=== PATIENT | female | born 1950 | race Caucasian/White ===

== ENCOUNTER 2016-11-07 04:30 | Inpatient (IN) | payer OTHER ==
[~2016-11-07] VITALS: Ht 152.4 cm; Wt 93.6 kg
[2016-11-07] VITALS (7 sets, daily range): BP systolic 84–168; BP diastolic 51–108
[2016-11-07] MEDS ORDERED: ASPIRIN ENTERIC81 M1 PO (06:09)
[2016-11-07] MEDS ORDERED: ACETAMINOPHEN500 MG PO (06:11)
[2016-11-07] MEDS ORDERED: BENAZEPRIL HCL20 MG PO (06:11)
[2016-11-07] MEDS ORDERED: CITALOPRAM HYDR40 MG PO (06:12)
[2016-11-07] MEDS ORDERED: NEURONTIN600 MG PO (06:13)
[2016-11-07] MEDS ORDERED: HUMULIN 70/30 SC (06:14)
[2016-11-07] MEDS ORDERED: HUMALOG100 MG/ML (06:16)
[2016-11-07] MEDS ORDERED: SIMVASTATIN80 MG PO (06:17)
--- NOTE | 2016-11-07 07:44 | HISTORY AND PHYSICAL ---
ADMITTED: 11/07/2016 ADMITTING DIAGNOSIS: 1. Pneumonia CHIEF COMPLAINT: 1. Cough HISTORY OF PRESENT ILLNESS: The patient is a white diabetic female who came in complaining of sickness for a couple of weeks. It began after she was not so long ago discharged with ketoacidosis. She developed a cough with severe headache, body aches, and green phlegm production with a fever up to 103. It worsened over the following 2 weeks and she developed decreased appetite, near constant cough, with occasional slight vomiting. She also developed in the last week, shortness of breath, wheezing, and went to the emergency department in [place] for evaluation. She denied any hemoptysis. MEDICAL/SURGICAL HISTORY: Type 2 diabetes mellitus managed with insulin, fibromyalgia syndrome, chronic headache and pain, peripheral neuropathy, hypertension, narcolepsy. Past surgical history: NOEMI/BSO. She has had back surgery. She is status post tonsillectomy, cholecystectomy, appendectomy. MEDICATIONS: 1. Gabapentin 1200 mg t.i.d. 2. Humulin 70/30 forty units b.i.d. 3. Humalog per sliding scale. 4. Celexa 40 mg daily. 5. Simvastatin 40 mg daily. 6. Aspirin 81 mg. 7. A green blood pressure pill. ALLERGIES: 1. SOCIAL HISTORY: FAMILY HISTORY: Father had heart disease. Her mother had diabetes, stroke, and breast cancer. She has siblings who are well. REVIEW OF SYSTEMS: Positive for chronic diarrhea. She has diabetes and her blood sugars have been running low. Recently hospitalized for ketoacidosis as mentioned. She has had some runny nose and slight sore throat. She has body aches, but aches have worsened all over and has generalized arthritis. She has burning and numbness in her feet from neuropathy. She also has chronic pain. PHYSICAL EXAMINATION: VITAL SIGNS: Stable. An increased pulse was noted at the emergency department, blood pressure was noted to be high as high as 196/91, pulse was up to 120. O2 saturations were 88% after walking and up to 96% with supplemental oxygen. Temperature as high as 102.9. GENERAL: The patient was awake, alert, in no acute distress, breathing comfortably. HEENT: PERRLA. EOMI. External ears were clear. Pharynx was dry. NECK: Supple. There is no adenopathy or bruits. No thyromegaly or mass. LUNGS: With rhonchi and inspiratory wheeze on the right. HEART: Rate and rhythm was regular without murmur, click, rub or gallop. ABDOMEN: Obese. There was no abdominal mass or bruit. Good bowel sounds. BREASTS: Symmetric. BACK: Without CVAT. EXTREMITIES: Showed no clubbing, cyanosis, or edema. There is no apparent skin lesions notable. LAB/IMAGING: Laboratory evaluation in the emergency department showed a potassium at 3.4, sodium 141, CO2 23, glucose was 219, BUN 5, creatinine 0.7. Lactate was 1.55. Oxygen level was pH of the blood was 7.3, CO2 41. WBC 7.4, hemoglobin 13, hematocrit 38 , lymphs were 15%, monos 5, eos 0.5, polys 78, and absolute neutrophil count was 5.8. Platelet count 304. A CT scan was done to rule out PE and this demonstrated multifocal infiltrates at the right lower and smaller infiltrates in the left lower lungs. Bronchiolar cuffing was present. Lymph nodes were noted in the mediastinum. The largest was 1.6 cm. Heart was enlarged and there were coronary artery calcifications. Chest x-ray also suggested some basilar infiltrates. IMPRESSION: 1. Clinical influenza 2. Pneumonia 3. Poorly controlled diabetes PLAN: The patient was transferred from the emergency department there due to lack of availability of beds in the [facility]. She was admitted here for the diagnosis of pneumonia and will be started on a pneumonia protocol.
--- NOTE | 2016-11-07 08:00 | Progress Note ---
Subjective General Note Date: November 07, 2016 Admission Date: November 07, 2016 Hospital Day: 1 PCP: Samantha Bray M.D. Status: Inpatient Advanced Directive: FULL CODE Room: 205 Brief History: The patient is a 66-year-old white female with a significant past medical history of COPD, type 2 diabetes mellitus, fibromyalgia, chronic pain, peripheral neuropathy, hypertension, narcolepsy, who presented as a transfer from [facility] emergency department secondary to suspected pneumonia/influenza. Secondary to the above, the patient was admitted by Connor Mcfadden M.D. for further evaluation and treatment For other history present illness, past medical history, family history, social history, review of systems, and admission physical examination please see the patient's history and physical examination and ER visit note in the patient's medical record. Subjective: The patient states she is doing somewhat better today. Shortness of breath improved. Feels better after use of Tylenol Patient requests: None Medications and Allergies Medications Current Medications Sig/Asha Start time Last Medication Dose Route Stop Time Status Admin Azithromycin 500 MG DAILY 11/08 899 AC Sodium Chloride 250 ML IV 11/09 1000 Citalopram 40 MG DAILY 11/08 09 AC Hydrobromide PO Atorvastatin Calcium 80 MG QPM 11/07 1800 AC PO Gabapentin 600 MG TID 11/07 1400 AC PO Insulin Human Lispro See Dose AC 11/07 1130 AC Insts (1) SC Sodium Chloride/ 1,000 ML ASDIRECTED 11/07 0945 AC Electrolytes IV Aspirin 81 MG DAILY 11/07 0900 AC 11/07 PO 0831 Ceftriaxone Sodium/ 50 ML DAILY 11/07 0900 AC 11/07 Dextrose IV 0837 Insulin Lispro 40 UNITS BID 11/07 0900 AC 11/07 Protam/Lispro Human SC 0920 Lisinopril 40 MG DAILY 11/07 0900 AC 11/07 PO 0831 Albuterol Sulfate 2.5 MG RTQ3H PRN 11/07 0815 AC IN Acetaminophen 500 MG Q4H PRN 11/07 0700 AC PO Acetaminophen 650 MG Q6H PRN 11/07 0645 AC 11/07 PO 0831 Ondansetron HCl 4 MG Q6H PRN 11/07 0645 AC PO Zolpidem Tartrate 5 MG QHS PRN 11/07 0645 AC PO Dose Instructions: (1)Insulin Human Lispro: LOW DOSE SLIDING SCALE Allergies Coded Allergies: Rosiglitazone (From AVANDIA) (Intermediate, SWELLING 11/07/16) Exenatide (From BYETTA) (Mild, NAUSEA 11/07/16) Phenol (From BYETTA) (Mild, NAUSEA 11/07/16) Aspirin (Intermediate, NAUSEA AND VOMITING WITH LARGE DOSES 11/07/16) Ibuprofen (Intermediate, "HARD ON KIDNEYS" 11/07/16) Metformin (Intermediate, DIARRHEA 11/07/16) Codeine (Mild, HEADACHE 11/07/16) Physical Exam Vital Signs / I&Os Vital Signs Date Time Temp Pulse Resp B/P Pulse O2 O2 Flow FiO2 Ox Delivery Rate 11/07 0705 102.0 106 20 153/77 90 Room Air 11/07 0600 Nasal 4.0 Cannula 11/07 0517 101.1 104 165/108 97 Nasal 4.0 Cannula General Appearance Alert, Oriented X3, Cooperative, No acute distress Lungs Scattered rhonchi, no notable rales Cardiovascular Regular rate and rhythm, Normal S1 and S2 Abdomen Normal bowel sounds, Soft, No tenderness Extremities No cyanosis, No clubbing, No edema Neurological Grossly normal Psych/Mental Status Mental status normal, Mood normal Assessment and Plan Problem List 1. Pneumonia Plan -Patient presents with findings of pneumonia -Rocephin/Zithromax -Procalcitonin -Monitor 2. Diabetes mellitus Status Chronic Onset Date Unknown Plan -Continue present insulin regimen/sliding scale -Consistent carbohydrate diet -Monitor blood sugar before meals and at bedtime -Check hemoglobin A1c 3. Hypertension Status Chronic Onset Date Unknown Plan -Patient with history of hypertension -Blood pressure adequately controlled -Blood pressure: 143/69 mmHg -Low-salt diet -Monitor with adjustments in antihypertensive therapy as indicated by blood pressure measurements 4. Hypercholesterolemia Status Chronic Onset Date Unknown Plan -Patient with history of hypercholesterolemia -Continue statin therapy -Low-cholesterol diet/low fat diet -Outpatient follow-up with PCP -No further evaluation during the patient's hospitalization 5. Diabetic neuropathy Status Chronic Onset Date Unknown Plan -Not problematic, no patient complaint this time -Continue outpatient medical regimen Current status: Fair, improved Anticipated discharge date: Anticipated discharge in 2 days Anticipated discharge placement: Home Patient care time: Time spent in chart review, patient interview, physical exam, CPOE, and care documentation: 25 minutes Visit to patient today: 1 Complexity of care: Moderate E&M Codes Rounding: Inpt-Moderate/[id number]
[2016-11-08 02:17] VITALS: BP 140/72
[2016-11-08 06:36] VITALS: BP 172/81
--- NOTE | 2016-11-08 07:47 | Progress Note ---
Subjective General Note Date: November 08, 2016 Admission Date: November 07, 2016 Hospital Day: 2 PCP: Samantha Bray M.D. Status: Inpatient Advanced Directive: FULL CODE Room: 205 Brief History: The patient is a 66-year-old white female with a significant past medical history of COPD, type 2 diabetes mellitus, fibromyalgia, chronic pain, peripheral neuropathy, hypertension, narcolepsy, who presented as a transfer from [facility] emergency department secondary to suspected pneumonia/influenza. Secondary to the above, the patient was admitted by Connor Mcfadden M.D. for further evaluation and treatment For other history present illness, past medical history, family history, social history, review of systems, and admission physical examination please see the patient's history and physical examination and ER visit note in the patient's medical record. Subjective: The patient states she is doing somewhat better today. Shortness of breath improved. No specific concerns or complaints at this time Patient requests: None Medications and Allergies Medications Current Medications Sig/Asha Start time Last Medication Dose Route Stop Time Status Admin Azithromycin 500 MG DAILY 11/08 899 AC Sodium Chloride 250 ML IV 11/09 1000 Citalopram 40 MG DAILY 11/08 09 AC Hydrobromide PO Atorvastatin Calcium 80 MG QPM 11/07 1800 AC 11/07 PO 1852 Gabapentin 600 MG TID 11/07 1400 AC 11/08 PO 0536 Insulin Human Lispro See Dose AC 11/07 1130 AC Insts (1) SC Sodium Chloride/ 1,000 ML ASDIRECTED 11/07 944 AC 11/08 Electrolytes IV 0301 Aspirin 81 MG DAILY 11/07 09 AC 11/07 PO 0831 Ceftriaxone Sodium/ 50 ML DAILY 11/07 09 AC 11/07 Dextrose IV 0837 Insulin Lispro 40 UNITS BID 11/07 0900 AC 11/07 Protam/Lispro Human SC 2043 Lisinopril 40 MG DAILY 11/07 0900 AC 11/08 PO 0733 Albuterol Sulfate 2.5 MG RTQ3H PRN 11/07 0815 AC IN Acetaminophen 500 MG Q4H PRN 11/07 0700 AC PO Acetaminophen 650 MG Q6H PRN 11/07 0645 AC 11/07 PO 2119 Ondansetron HCl 4 MG Q6H PRN 11/07 0645 AC PO Zolpidem Tartrate 5 MG QHS PRN 11/07 0645 AC PO Dose Instructions: (1)Insulin Human Lispro: LOW DOSE SLIDING SCALE Allergies Coded Allergies: Rosiglitazone (From AVANDIA) (Intermediate, SWELLING 11/07/16) Exenatide (From BYETTA) (Mild, NAUSEA 11/07/16) Phenol (From BYETTA) (Mild, NAUSEA 11/07/16) Wheat (Severe, GLUTEN INTOLERANT 11/07/16) Aspirin (Intermediate, NAUSEA AND VOMITING WITH LARGE DOSES 11/07/16) Ibuprofen (Intermediate, "HARD ON KIDNEYS" 11/07/16) Metformin (Intermediate, DIARRHEA 11/07/16) Codeine (Mild, HEADACHE 11/07/16) Physical Exam Vital Signs / I&Os Vital Signs Date Time Temp Pulse Resp B/P Pulse O2 O2 Flow FiO2 Ox Delivery Rate 11/08 0651 94 1.0 11/08 0636 100.0 97 18 172/81 92 Nasal 4.0 Cannula 11/08 0217 98.4 70 18 140/72 97 Nasal 4.0 Cannula 11/07 2125 98.4 86 24 168/83 96 Nasal 4.0 Cannula 11/07 1950 Nasal 4.0 Cannula 11/07 1835 98.8 85 22 132/66 95 Nasal 3.5 Cannula 11/07 1335 99.0 88 16 147/74 95 Nasal 2.0 Cannula 11/07 1059 4.0 11/07 1038 99.9 94 18 143/69 88 Room Air 11/07 1018 4.0 I&O 11/08 0000 11/07 1600 11/07 0800 Intake Total 480 310 Output Total 1600 1600 Balance -1120 -1290 General Appearance Alert, Oriented X3, Cooperative, No acute distress Lungs scattered rhonchi, minimal expiratory wheezes Cardiovascular Regular rate and rhythm, Normal S1 and S2 Abdomen Normal bowel sounds, Soft, No tenderness Extremities No cyanosis, No clubbing, No edema Neurological Grossly normal Psych/Mental Status Mental status normal, Mood normal LAB Results Laboratory Tests 11/08 11/07 11/07 0619 0959 0959 Chemistry Plasma Sodium (136 - 145 mmol/L) 143 Plasma Potassium (3.5 - 5.1 mmol/L) 3.1 Plasma Chloride (98 - 107 mmol/L) 106 CO2 (Enzymatic) (21 - 32 mmol/L) 27 BUN (7 - 18 mg/dL) 5 Creatinine (0.6 - 1.3 mg/dL) 0.8 Est GFR ( Amer) (mL/min) >60 Est GFR (Non-Af Amer) (mL/min) >60 Glucose (70 - 110 mg/dL) 91 Hemoglobin A1c % (4.5 - 6.2 %) 10.7 Plasma Calcium (8.5 - 10.1 mg/dL) 7.3 Procalcitonin (0 - 0.5 ng/mL) <0.5 Hematology WBC (4.5 - 11.5 K/uL) 8.1 8.9 RBC (4.00 - 5.20 M/uL) 3.72 3.64 Hgb (12.0 - 16.0 gm/dL) 11.2 10.9 Hct (36.0 - 46.0 %) 34.1 33.1 MCV (80 - 100 fL) 92 91 MCH (26 - 34 pg) 30 30 RDW (11.6 - 14.8 %) 13.5 13.4 Neut % (Auto) (50 - 75 %) Pending 52 Lymph % (Auto) (25 - 40 %) Pending 23 [place] % (Auto) (3 - 14 %) Pending 6 Eos % (Auto) (0 - 4 %) 0 Baso % (Auto) (0 - 2 %) 1 Band Neutrophils % (0 - 8 %) Pending 18 Metamyelocytes % (0 - 1 %) 0 Myelocytes (0 - 1 %) 0 Other Cell Type 0 Plt Count, EDTA (150 - 400 K/uL) 306 301 Anisocytosis (manual) 1+ PUBS MCHC (31 - 37 g/dL) 33 33 Assessment and Plan Problem List 1. Hypokalemia Status Acute Onset Date 11/08/16 Plan -Patient with findings of hypokalemia -Potassium 3.1 today -KCl 40 mEq IV -KCl 20 mEq by mouth daily -Monitor 2. Diabetic neuropathy Status Chronic Onset Date Unknown Plan -Stable -Continue gabapentin 600 mg by mouth 3 times a day 3. Hypercholesterolemia Status Chronic Onset Date Unknown Plan -No further evaluation -Consistent carbohydrate/low cholesterol diet -Lipitor 80 mg by mouth daily 4. Hypertension Status Chronic Onset Date Unknown Plan -Blood pressure elevated this a.m. -BP 172/81 mmHg -Low-salt diet -Monitor with adjustments in antihypertensive therapy as necessary -Continue lisinopril 40 mg by mouth daily 5. Diabetes mellitus Status Chronic Onset Date Unknown Plan -Blood sugar well controlled -Continue present therapy -Elevated hemoglobin A1c -Recommend outpatient diabetic education with improved follow-up 6. Pneumonia Plan -Afebrile overnight -CBC shows normal WBC with left shift -Continue Rocephin/Zithromax -Monitor -Possible discharge 1-2 days with improved status Current status: Fair, improved Anticipated discharge date: Anticipated discharge in 1-2 days Anticipated discharge placement: Home Patient care time: Time spent in chart review, patient interview, physical exam, CPOE, and care documentation: 25 minutes Visit to patient today: 1 Complexity of care: Moderate E&M Codes Rounding: Inpt-Moderate/[id number]
[2016-11-08 09:45] VITALS: BP 168/77
[2016-11-08 14:32] VITALS: BP 147/76
[2016-11-08 17:57] VITALS: BP 162/84
[2016-11-08 22:46] VITALS: BP 156/71
[2016-11-09 04:56] VITALS: BP 148/73
[2016-11-09 11:15] VITALS: BP 128/60
[2016-11-09 14:10] VITALS: BP 149/73
--- NOTE | 2016-11-09 17:22 | Progress Note ---
Subjective General The patient is a 66-year-old white female with a significant past medical history of COPD, type 2 diabetes mellitus, fibromyalgia, chronic pain, peripheral neuropathy, hypertension, narcolepsy, who presented as a transfer from [facility] emergency department secondary to suspected pneumonia/influenza. Secondary to the above, the patient was admitted by Connor Mcfadden M.D. for further evaluation and treatment Constitutional Weakness, Malaise. Denies: Fever, Chills, Other. Eyes Denies: Pain, Vision Change, Conjunctival Inflammation, Eyelid Inflammation, Redness, Other. ENT Denies: Ear Pain, Ear Discharge, Nose Pain, Nasal Discharge, Nasal Congestion, Mouth Pain, Mouth Swelling, Throat Pain, Throat Swelling, Other. Respiratory Cough, SOB w/exertion. Denies: Dry, Wheezing, Hemoptysis, Pleuritic Pain, Sputum. Cardiovascular Denies: Chest Pain, Palpitations, Orthopnea, PND, Edema, Light-headedness, Other. Gastrointestinal Denies: Nausea, Vomiting, Abdominal Pain, Diarrhea, Constipation, Melena, Hematochezia, Other. Genitourinary Denies: Dysuria, Frequency, Incontinence, Hematuria, Retention, Other. Musculoskeletal Denies: Neck Pain, Shoulder Pain, Arm Pain, Back Pain, Hand Pain, Leg Pain, Foot Pain, Other. Skin Denies: Rash, Lesions, Jaundice, Bruising, Other. Neurological Denies: Weakness, Numbness, Incoordination, Change in speech, Confusion, Seizures, Other. Physical Exam Vital Signs / I&Os Vital Signs Date Time Temp Pulse Resp B/P Pulse O2 O2 Flow FiO2 Ox Delivery Rate 11/09 1410 98.1 83 18 149/73 94 Room Air 11/09 1256 18 95 Room Air 11/09 1115 98.4 84 18 128/60 93 Room Air 11/09 1032 95 Room Air 11/09 0835 Nasal 2.0 Cannula 11/09 0456 98.4 86 20 148/73 92 Nasal 2.0 Cannula 11/08 2335 Nasal 2.0 Cannula 11/08 2246 98.8 85 16 156/71 96 Nasal 2.0 Cannula 11/08 2030 2.0 11/08 1944 2.0 11/08 1757 99.7 92 18 162/84 97 Nasal 2.0 Cannula I&O 11/08 0800 11/08 1600 11/09 0000 Intake Total 3043 2075 1596 Output Total 1554 2200 1900 Balance 1093 -125 -304 General Appearance Alert, Oriented X3, No acute distress HEENT Normal exam, PERRLA, EOMI, Moist mucous membranes Lungs ronchi throughout bilateral lung flores Neck No JVD, No masses, No thyromegaly, 2+ carotid pulse wo bruit Cardiovascular Regular rate and rhythm, Normal S1 and S2, No murmurs, gallops, rubs Abdomen Soft, No tenderness, No guarding, No rebound, No masses Rectal No hemorrhoids Extremities No clubbing, No edema, Normal pulses, No tenderness, Strength = upper ext's, Strength = lower ext's Skin No Breakdown, No Significant Lesions Neurological Normal speech, Sensation intact, Cranial nerves intact, Strength 5/ 5 x4 ext's, No lateralizing signs LAB Results Laboratory Tests 11/09 11/09 11/09 0525 0525 0525 Chemistry Plasma Sodium (136 - 145 mmol/L) 143 Plasma Potassium (3.5 - 5.1 mmol/L) 3.5 Plasma Chloride (98 - 107 mmol/L) 108 CO2 (Enzymatic) (21 - 32 mmol/L) 25 BUN (7 - 18 mg/dL) 6 Creatinine (0.6 - 1.3 mg/dL) 0.7 Est GFR ( Amer) (mL/min) >60 Est GFR (Non-Af Amer) (mL/min) >60 Glucose (70 - 110 mg/dL) 75 Plasma Calcium (8.5 - 10.1 mg/dL) 7.7 Iron (35 - 150 ug/dL) 25 TIBC (260 - 445 ug/dL) 222 Iron Saturation (15 - 50 %) 11 Vitamin B12 (211 - 946 pg/mL) 232 Folate (>3.0 ng/mL) 15.3 Assessment and Plan Problem List 1. Pneumonia Plan -Afebrile overnight -CBC shows normal WBC with left shift -Continue Rocephin/Zithromax -Monitor -Possible discharge 1-2 days with improved status 2. Diabetes mellitus Status Chronic Onset Date Unknown Plan -Blood sugar well controlled -Continue present therapy 3. Hypertension Status Chronic Onset Date Unknown Plan - blood pressure better controlled compared to yesterday -Low-salt diet -Monitor with adjustments in antihypertensive therapy as necessary -Continue lisinopril 40 mg by mouth daily 4. Diabetic neuropathy Status Chronic Onset Date Unknown Plan -Stable -Continue gabapentin 600 mg by mouth 3 times a day
[2016-11-09 18:18] VITALS: BP 160/75
[2016-11-09 23:49] VITALS: BP 145/75
[2016-11-10 04:19] VITALS: BP 153/58
[2016-11-10 06:44] VITALS: BP 150/84
[2016-11-10 10:41] VITALS: BP 149/72
[2016-11-10] MEDS ORDERED: CEFUROXIME AXE500 MG PO (13:09)
--- NOTE | 2016-11-10 13:10 | Provider's Discharge Care Plan ---
Problem, Goal, Plan Problem List 1. Pneumonia Instructions: Follow up as needed (take antibiotics as prescribed) 2. Diabetes mellitus Instructions: Follow up as needed (take insulin as prescribed) 3. Hypertension Instructions: blood pressure has been appropriate, will continue with medication regimen 4. Diabetic neuropathy Instructions: keep right blood sugar control, and c/w gabapentin
--- NOTE | 2016-11-10 13:16 | Discharge Summary ---
Discharge Summary Report Admit Date 11/07/16 Discharge Date 11/10/16 Admission Diagnosis pneumonia Discharge Diagnosis viral pneumonia with a possible bacterial component Brief History The patient is a white diabetic female who came in complaining of sickness for a couple of weeks. It began after she was not so long ago discharged with ketoacidosis. She developed a cough with severe headache, body aches, and green phlegm production with a fever up to 103. It worsened over the following 2 weeks and she developed decreased appetite, near constant cough, with occasional slight vomiting. She also developed in the last week, shortness of breath, wheezing, and went to the emergency department in [place] for evaluation. She denied any hemoptysis. Hospital Course Patient was admitted for presumed influenza. Patient was tested and there was no evidence of influenza however patient did have an upper respiratory virus. Patient was treated with antibiotics for presumed bacterial infection. Patient had good response to the antibiotics. Patient is stable today for discharge. General Appearance Alert, Oriented X3, No acute distress HEENT PERRLA, EOMI, Mucous membran moist/pink Lungs Normal air movement Cardiovascular Normal S1, Normal S2, Gallops, Rubs Abdomen Soft, No hepatospenomegaly, No masses Skin No Breakdown, No Significant Lesions Neurological Normal speech, Normal tone, Sensation intact, Cranial nerves 3-12 NL, Reflexes 2+ Discharge Instructions/Meds - take medication as prescribed - continue with antibiotics for the next 4 days - follow up with your pmd at your convienience
[2016-11-10 14:31] VITALS: BP 157/74
[2016-11-10 17:48] VITALS: BP 164/81
== END 2016-11-10 19:00 | disposition home or self-care (01) | DRG 195 ==
LOC: ACUTE2 SRH 04:30
PROVIDERS: ADMIT Family Medicine
DX: J12.9 Viral pneumonia, unspecified (principal); J15.9 Unspecified bacterial pneumonia; E11.65 Type 2 diabetes mellitus with hyperglycemia; E11.42 Type 2 diabetes mellitus with diabetic polyneuropathy; E87.6 Hypokalemia; R73.9 Hyperglycemia, unspecified; M79.7 Fibromyalgia; Z79.4 Long term (current) use of insulin
CPT/HCPCS: 85241; 90047; 90074; 90098; 91286; 91295; 91504; 91505; 92668; 92670; 93004; 95061